=== PATIENT | female | born 1985 | race Caucasian/White ===

== ENCOUNTER → 2017-01-03 | Outpatient (REF) | payer OTHER ==
[~2017-01-03] MED LIST: ACET50TA PO; IBUP800T23 PO; IBUP80TA PO; PERC5TAB6 PO; PRIL20CA9 PO; VITAPRTA PO
[2017-01-03 18:58] LABS: FREE T4 0.96 NG/DL (0.76-1.46)
[2017-01-03 19:57] LABS: MEAN CORPUSCULAR HEMOGLOBIN 30.5 pg (27.0-33.0); MEAN CORPUSCULAR HGB CONC 33.3 g/dl (32.0-36.5); MEAN CORPUSCULAR VOLUME 91.5 fl (80.0-96.0); RED CELL DISTRIBUTION WIDTH 13.2 % (11.5-14.5)
== END ==
LOC: M SFHCLERA 14:23
PROVIDERS: ATTEND Family Medicine
DX: F34.1 Dysthymic disorder (principal)

== ENCOUNTER → 2020-01-29 | Outpatient (CLI) | payer BC ==
[~2020-01-29] MED LIST changes: -ACET50TA PO; +IBUP1TAB7 PO; -IBUP800T23 PO; +MAPA500T2 PO; +PERC5TAB12 PO; -PERC5TAB6 PO
--- NOTE | 2020-01-29 17:24 | REP ---
Two views right hip: 01/29/2028. Indication: Right hip pain. Comparison: None. Findings: There is no acute fracture, subluxation or dislocation. No lytic or blastic lesions are present within the visualized osseous structures. To radiopaque foreign bodies are noted within the right pelvis, likely surgically related. Impression: No acute fracture of the right hip or additional acute pathology. Electronically Signed by Kody Cr DO 01/29/2020 05:16 P
== END ==
LOC: M LRY 16:58
PROVIDERS: ATTEND Nurse Practitioner Family
DX: M25.551 Pain in right hip (principal)

== ENCOUNTER 2020-05-15 11:01 | Emergency (ER) | payer BC, MEDICAID ==
[~2020-05-15] VITALS: Ht 170.2 cm; Wt 70.3 kg
[2020-05-15 11:02] VITALS: BP 114/77
[2020-05-15] MEDS ORDERED: BUSP1TAB PO (11:12)
[2020-05-15] MEDS ORDERED: GABA-843 PO (11:12)
[2020-05-15] MEDS ORDERED: PROP60CA PO (11:12)
[2020-05-15] MEDS ORDERED: KETO10TAB PO (11:58)
[2020-05-15] MEDS ORDERED: ONDA4TAB6 PO (11:58)
[2020-05-15] MEDS ORDERED: SUMA25TA3 PO (11:58)
== END 2020-05-15 12:23 | disposition home or self-care (01) ==
LOC: M ED 11:01
DX: G43.709 Chronic migraine without aura, not intractable, without status migrainosus (principal); F17.200 Nicotine dependence, unspecified, uncomplicated; Z79.899 Other long term (current) drug therapy

== ENCOUNTER 2020-07-02 14:47 | Emergency (ER) | payer BC, MEDICAID ==
[~2020-07-02] VITALS: Ht 170.2 cm; Wt 73.3 kg
[~2020-07-02 14:47] MED LIST changes: +BUSP1TAB PO; +GABA-843 PO; +KETO10TAB PO; +ONDA4TAB6 PO; +PROP60CA PO; +SUMA25TA3 PO
[2020-07-02] MEDS ORDERED: ZONI50CA11 PO (15:02)
[2020-07-02] MEDS ORDERED: D3 +TAB PO (15:02)
[2020-07-02] MEDS ORDERED: FERR325T3 PO (15:02)
[2020-07-02] MEDS ORDERED: FISH1000 PO (15:02)
[2020-07-02] MEDS ORDERED: NS 1,000 ML IV ONE (15:30)
[2020-07-02 15:57] LABS: BASO # 0.1 10^3/uL (0.0-0.2); BASO % 0.6 % (0.0-1.0); EOS # 0.2 10^3/uL (0.0-0.5); EOS % 1.3 % (0.0-3.0); HEMOGLOBIN 12.5 g/dl (12.0-15.5); LYMPH # 2.9 10^3/uL (1.5-5.0); LYMPH % 22.7 % (24.0-44.0); MEAN CORPUSCULAR HEMOGLOBIN 30.5 pg (27.0-33.0); MEAN CORPUSCULAR HGB CONC 33.8 g/dl (32.0-36.5); MEAN CORPUSCULAR VOLUME 90.2 fl (80.0-96.0); MONO # 0.7 10^3/uL (0.0-0.8); MONO % 5.3 % (0.0-5.0); NEUTROPHILS % 69.8 % (36.0-66.0); PLATELET COUNT, AUTOMATED 238 10^3/uL (150-450); WHITE BLOOD COUNT 12.9 10^3/uL (4.0-10.0)
[2020-07-02 16:08] LABS: INR 1.1; PROTHROMBIN TIME 14.4 SECONDS (12.5-14.3)
[2020-07-02 16:09] LABS: PARTIAL THROMBOPLASTIN TIME 26.4 SECONDS (24.2-38.5)
[2020-07-02 16:11] LABS: D-DIMER QUANT 519.44 ng/ml (<500)
[2020-07-02 16:23] LABS: BLOOD UREA NITROGEN 11 MG/DL (7-18); CALCIUM LEVEL 9.7 MG/DL (8.5-10.1); CARBON DIOXIDE LEVEL 25 MEQ/L (21-32); CHLORIDE LEVEL 110 MEQ/L (98-107); CK-MB VALUE MASS < 1.0 NG/ML (<3.6); CPK CREATINE PHOSPHOKINASE 81 U/L (26-192); CREATININE FOR GFR 0.86 MG/DL (0.55-1.30); FREE T4 0.93 NG/DL (0.76-1.46); GLOMERULAR FILTRATION RATE > 60.0 (>60); GLUCOSE, FASTING 128 MG/DL (70-100); MAGNESIUM LEVEL 2.2 MG/DL (1.8-2.4); MB/CK RELATIVE INDEX 1.23 (< OR =4); NT-PRO BNP 86 PG/ML (<125); POTASSIUM SERUM 3.7 MEQ/L (3.5-5.1); SODIUM LEVEL 143 MEQ/L (136-145); TROPONIN I < 0.02 NG/ML (< 0.10)
[2020-07-02] MEDS ORDERED: KETOROLAC 30 MG/ML 1ML VIAL IV ONE (17:00)
--- NOTE | 2020-07-02 18:15 | REPVR ---
PROCEDURE INFORMATION: Exam: US Duplex Lower Extremity Veins, Bilateral Exam date and time: 07/02/2020 5:53 PM Age: 34 years old Clinical indication: Pain; Leg, lower; Bilateral; Additional info: Bilat leg pain with elevated ddimer R/O dvt TECHNIQUE: Imaging protocol: Real-time duplex ultrasound of the extremities with 2-D galdamez scale, color Doppler flow and spectral waveform analysis with image documentation. Complete exam focused on the bilateral lower extremity veins. COMPARISON: No relevant prior studies available. FINDINGS: Right deep veins: Unremarkable. The common femoral, femoral and popliteal veins are patent without thrombus. Normal Doppler waveforms. Normal compressibility and/or augmentation response. Right superficial veins: Saphenofemoral junction is patent without thrombus. Left deep veins: Unremarkable. The common femoral, femoral and popliteal veins are patent without thrombus. Normal Doppler waveforms. Normal compressibility and/or augmentation response. Left superficial veins: Saphenofemoral junction is patent without thrombus. Soft tissues: Unremarkable. IMPRESSION: No sonographic evidence of deep vein thrombosis. Electronically signed by: Nnamdi Vora On 07/02/2020 18:14:46 PM
[2020-07-02 19:22] VITALS: BP 142/77
== END 2020-07-02 19:20 | disposition home or self-care (01) ==
LOC: M ED 14:47
DX: R51.9 Headache, unspecified (principal); M79.604 Pain in right leg; M79.605 Pain in left leg; M79.89 Other specified soft tissue disorders; M54.9 Dorsalgia, unspecified; F17.210 Nicotine dependence, cigarettes, uncomplicated; Z79.899 Other long term (current) drug therapy
CPT/HCPCS: 36415; 80048; 82550; 82553; 83735; 83880; 84439; 84443; 84484; 85025; 85379; 85610; 85730; 93970; 96361; 96374; 99284; J1885

== ENCOUNTER → 2022-09-13 | Outpatient (REF) | payer OTHER ==
[~2022-09-13] MED LIST changes: +D3 +TAB PO; +FERR325T3 PO; +FISH1000 PO; +GABA-282 PO; -GABA-843 PO; +ZONI50CA11 PO
== END ==
LOC: M PLALAB 15:30
PROVIDERS: ATTEND Obstetrics & Gynecology
DX: Z12.4 Encounter for screening for malignant neoplasm of cervix (principal)

== ENCOUNTER → 2022-11-09 | Outpatient (CLI) | payer OTHER | LOC: M WHC 13:13 | PROVIDERS: ATTEND Obstetrics & Gynecology | DX: N64.52 Nipple discharge (principal) ==